=== PATIENT | male | born 1965 | race Caucasian/White ===

== ENCOUNTER 2022-11-22 21:32 | Emergency (ER) | payer MEDICAID, SELFPAY ==
[2022-11-22 21:35] VITALS: BP 160/105; PULSE 100; RESP 18; TEMP 37.2; O2SAT 98; BMI 58.7
[2022-11-22 21:40] VITALS: BP 129/81; PULSE 106; RESP 20; O2SAT 92
--- NOTE | 2022-11-22 21:51 | XRR_ITS ---
PROCEDURE INFORMATION: Exam: XR Chest Exam date and time: 11/22/2022 9:54 PM Age: 57 years old Clinical indication: Cough; Additional info: Esophage for body, PT states a piece of steak is stuck in his throat TECHNIQUE: Imaging protocol: Radiologic exam of the chest. Views: 2 views. COMPARISON: No relevant prior studies available. FINDINGS: Lungs: Unremarkable. No consolidation. Pleural spaces: Unremarkable. No pleural effusion. No pneumothorax. Heart/Mediastinum: Unremarkable. No cardiomegaly. Bones/joints: Unremarkable. XR/XR chest 2V* [id number] IMPRESSION: No acute findings.
--- NOTE | 2022-11-22 22:02 | W.ED.GENADLT ---
HPI - General Adult General: Chief complaint: Airway/Esophagus Foreign Body Stated complaint: Food stuck in Esoph Time Seen by Provider: 11/22/22 21:51 History of Present Illness: 57-year-old male patient comes in today for complaints of food bolus. Patient reports about 6:00 this evening he was eating a piece of steak and he went to swallow it but it felt like its become lodged in his esophagus. Patient has had a previous event and 2013 in which he has had to have endoscopy procedure done. Patient was also reported other times that it has resolved on its own. Patient reports having to spit up saliva as he is not able to swallow it completely down. Patient has a history of hypertension in which he takes medication for. Patient also is morbidly obese. Patient's airway is intact. No acute distress is noted. Patient denies any severe pain or discomfort. Associated symptoms: Deny chest pain, dyspnea or rash Review of Systems General: Reports: 10 or more systems reviewed and unremarkable except in HPI and below Card: Denies: chest pain Resp: Denies: dyspnea GI: Reports: dysphagia (Believes he has a food bolus) : Denies: difficulty urinating Skin/Breast: Denies: rash Physical Exam Const: COMMON NORMALS: patient oriented x3 Neck/C-Spine: COMMON NORMALS: full ROM Resp: COMMON NORMALS: normal respiratory effort and clear to auscultation bilaterally AUSCULTATION: clear to auscultation bilaterally Cardio: COMMON NORMALS: regular rate and regular rhythm RATE: regular rate RHYTHM: regular rhythm GI: COMMON NORMALS: Soft to palpation PALPATION: Yes Soft to palpation Back/Pelvis: COMMON NORMALS: thoracic and lumbar spine normal to inspection Extremity: COMMON NORMALS: normal to inspection Neuro: COMMON NORMALS: patient oriented x3 Skin: COMMON NORMALS: turgor normal GENERAL SKIN EXAM: turgor normal Course ED course: 2199, reviewed trial of glucagon since patient is does not appear to be in any distress or discomfort. Patient reported understanding and agreed to plan. Discussed patient with Dr. Cardenas who agreed to plan for glucagon administration, we will give it 45 minutes and then contact surgery if no resolution of symptoms. 2255, after 20 minutes of glucagon administration, a warm Coke was given to patient to chug. Patient did to volume jugs and was able to push down the food impaction. Patient then was able to drink water without difficulty and felt well to go home. Vital Signs: Vital signs: Vital Signs Temperature 98.9 F 11/22/22 21:35 Pulse Rate 106 H 11/22/22 22:40 Respiratory Rate 20 H 11/22/22 22:40 Blood Pressure 129/81 11/22/22 21:40 Pulse Oximetry 93 11/22/22 22:40 Oxygen Delivery Me thod Room Air 11/22/22 21:40 MDM - General Adult Medical Decision Making 57-year-old male patient comes in today for food impaction in the esophagus. On exam patient is in no distress. Patient is managing secretions well does occasionally spit some secretions out. Respirations are even lungs are clear to auscultation. Abdomen soft nontender. Differential diagnosis includes food impaction of the esophagus, partial obstruction of the esophagus, esophageal stricture, esophageal rupture. 2 view chest x-ray noted no abnormal fluid in the chest suggesting esophageal rupture. Patient was given 1 mg of glucagon followed by echo 20 minutes after and was able to pass the food bolus. Believe patient probably had a partially obstructed esophagus and was able to force it down with the gulping of fluid. Patient was able to belch and drink water after. Patient felt well to go home. Lab Data Radiology Impressions Chest X-Ray 11/22/22 21:51 IMPRESSION: No acute findings. Discharge Plan Discharge Patient Disposition: Home Clinical Impression: Esophageal obstruction due to food impaction Condition: Stable Discharge Orders: Discharge ED (Routine); Ordered 11/22/22 Ordered By: Garcia Mcnair Discharge Diet: Usual diet Discharge Activity: Increase activity as tolerated Patient Instructions: Food Impaction (ED) Activity Restrictions/Additional Instructions: Soft diet for the next 2 days. After that make sure to chew meat thoroughly, cut in smaller pieces to chew. Follow-up with primary care as needed. Coding Level of Care Code ED Sales Representative Trainee for Janet Colvin
[2022-11-22] MEDS: glucagon 1 mg/mL KIT 1 mL IV (22:17)
[2022-11-22 22:40] VITALS: PULSE 106; RESP 20; O2SAT 93
[2022-11-22 23:01] VITALS: BP 132/76; PULSE 101; RESP 18; O2SAT 94
--- NOTE | 2022-12-01 07:34 | DCPLANNER ---
TCM called patient due to no primary care physician - no answer at this time.
== END 2022-11-22 23:01 | disposition home or self-care (01) ==
PROVIDERS: Emergency Provider Nurse Practitioner Family
DX: K22.2 Esophageal obstruction (principal)
CPT/HCPCS: 71046; 96374; 99284; J1610

== ENCOUNTER 2023-01-05 07:25 | Emergency (ER) | payer MEDICAID, SELFPAY ==
[2023-01-05 07:30] VITALS: BP 167/87; PULSE 105; RESP 18; TEMP 36.6; O2SAT 94; BMI 57.9
[2023-01-05 07:38] VITALS: BP 167/87; PULSE 99; RESP 18; O2SAT 94
--- NOTE | 2023-01-05 08:02 | ED_ITS ---
HPI - Dental/Oral General: Chief complaint: Dental/Oral Stated complaint: tooth abscess Time Seen by Provider: 01/05/23 07:27 Source: patient Mode of arrival: ambulatory History of Present Illness: 57-year-old male presents emergency room complaining of left mandibular tooth pain. His premolars are inflamed at the gumline and previously eroded off he was seen earlier this week and started on amoxicillin he still has several days left but he feels like it is actually getting worse he is reporting a fever at home he is afebrile when he arrives here. He is complaining of pain radiating into his neck he has no difficulty with chewing he does have complaints of pain radiating to the ear as well. MD Complaint: tooth pain Teeth map: 1. Onset (ago): day(s) Duration: constant Severity: moderate Exacerbating factors: nothing Context: history of dental caries Associated symptoms: Reports ear or mastoid pain, fever(s), gum swelling and sore throat Treatment prior to arrival: other (Oral antibiotic) Review of Systems Const: Reports: fever(s) ENMT: Reports: throat pain, dental pain and ear or mastoid pain Card: Denies: chest pain, edema, dyspnea on exertion or orthopnea Resp: Denies: dyspnea, productive cough or non-productive cough GI: Denies: abdominal pain, nausea or vomiting : Denies: flank pain, dysuria, urinary frequency or urinary urgency Skin/Breast: Denies: rash or pruritus Physical Exam Const: COMMON NORMALS: no acute distress and healthy appearing GENERAL APPEARANCE: cooperative and comfortable ORIENTATION/CONSCIOUSNESS: Yes awake, Yes oriented to person, Yes oriented to place and Yes oriented to time HENMT: COMMON NORMALS: normocephalic, atraumatic and hearing grossly normal bilaterally HEAD & SCALP: normocephalic and atraumatic OTHER: Multiple eroded teeth with some inflammation at the premolar and first molar of the left mandible. No submandibular swelling Lymph: LYMPHATIC: no lymphadenopathy noted Resp: COMMON NORMALS: normal respiratory effort, No retractions, No use of accessory muscles and clear to auscultation bilaterally AUSCULTATION: clear to auscultation bilaterally Cardio: COMMON NORMALS: regular rate, regular rhythm and No murmurs present (Cardio) RATE: regular rate RHYTHM: regular rhythm GI: COMMON NORMALS: Soft to palpation and No hepatosplenomegaly present AUSCULTATION: Yes normoactive bowel sounds PALPATION: Yes Soft to palpation, No Tenderness to palpation present (GI), No Guarding due to palpation present (GI) and Yes No hepatosplenomegaly present Extremity: COMMON NORMALS: normal to inspection, capillary refill normal, no clubbing, cyanosis or edema, no calf tenderness and no pedal edema Neuro: SENSORIUM/ORIENTATION: Yes oriented to person, Yes oriented to place and Yes oriented to time Skin: COMMON NORMALS: no rashes or lesions noted GENERAL SKIN EXAM: no rashes or lesions noted Course Vital Signs: Vital signs: Vital Signs Temperature 97.9 F 01/05/23 07:30 Pulse Rate 99 01/05/23 07:38 Respiratory Rate 18 01/05/23 07:38 Blood Pressure 167/87 01/05/23 07:38 Pulse Oximetry 94 01/05/23 07:38 Oxygen Delivery Me thod Room Air 01/05/23 07:30 MDM - Dental/Oral Medical Decision Making Exam shows eroded teeth at the gumline with some moderate inflammation and swelling at that area. There is no submandibular fullness swelling or lymphadenopathy. Posterior pharyngeal wall normal. TMs are clear we will discharge patient home stop amoxicillin changed to Augmentin 875 twice daily for 10 days follow-up with dentist as soon as able Discharge Plan Discharge Patient Disposition: Home Clinical Impression: Dental abscess Condition: Stable Prescriptions: New amoxicillin-pot clavulanate 875-125 mg tablet 1 tab PO BID Qty: 20 0RF Discharge Orders: Discharge ED (Routine); Ordered 01/05/23 Ordered By: Ernie Pride Patient Instructions: Opioid Safety, Pain Management Activity Restrictions/Additional Instructions: You were seen today for tooth infection. Recommend you change from plain amoxicillin to Augmentin 1 tablet twice a day for 10 days. Follow-up with a dentist as soon as you are able. Coding Level of Care Code ED Automotive Collision Estimator for Janet Colvin
== END 2023-01-05 07:49 | disposition home or self-care (01) ==
PROVIDERS: Emergency Provider Family Medicine; PCP Physician Assistant
DX: K04.7 Periapical abscess without sinus (principal)
CPT/HCPCS: 99283

== ENCOUNTER 2023-01-06 08:03 | Observation (INO) | payer MEDICAID, SELFPAY ==
[2023-01-06] VITALS (12 sets, daily range): BP systolic 104–160; BP diastolic 60–90; PULSE 78–109; RESP 16–24; TEMP 36.5–37.6; O2SAT 90–95; BMI 58.7
--- NOTE | 2023-01-06 08:39 | W.ED.MALEGU ---
HPI - Male Genitourinary General: Chief complaint: Urogenital-Male Stated complaint: blood in urine Time Seen by Provider: 01/06/23 08:06 Source: patient Mode of arrival: ambulatory History of Present Illness: 57-year-old male who was seen yesterday for dental abscess change his medication from amoxicillin to Augmentin he is stating that the pharmacy would not fill it because they are stating that dose is the same. In addition to this he now has painless hematuria. He does not have a fever at this time he has no flank pain. No vomiting or diarrhea. Onset (ago): hour(s) Relieving factors: none Exacerbating factors: none Associated symptoms: Reports hematuria; Deny discharge, dysuria, fevers/chills, nausea, rash, swelling, urinary incontinence, urinary retention, mass or vomiting Review of Systems Const: Denies: fever(s), chills, body aches, change in appetite, fatigue or malaise Card: Denies: chest pain, edema, dyspnea on exertion or orthopnea Resp: Denies: dyspnea, productive cough or non-productive cough GI: Denies: nausea or vomiting : Reports: hematuria; Denies: flank pain, dysuria, urinary frequency, urinary urgency or urinary incontinence Skin/Breast: Denies: rash or pruritus PFSH ED PFSH: Medical History (Updated 01/07/23 @ 17:03 by Ernie Pride DO) Hyperlipidemia Hypertension Surgical History (Updated 01/06/23 @ 13:13 by Elsa Kirkpatrick MD) H/O lithotripsy Family History (Updated 01/06/23 @ 13:13 by Elsa Kirkpatrick MD) Denies family history of CAD (coronary artery disease) Physical Exam Const: COMMON NORMALS: no acute distress GENERAL APPEARANCE: cooperative and comfortable ORIENTATION/CONSCIOUSNESS: Yes awake, Yes oriented to person, Yes oriented to place and Yes oriented to time HENMT: COMMON NORMALS: normocephalic, atraumatic and hearing grossly normal bilaterally HEAD & SCALP: normocephalic and atraumatic Resp: COMMON NORMALS: normal respiratory effort, No retractions, No use of accessory muscles and clear to auscultation bilaterally AUSCULTATION: clear to auscultation bilaterally Cardio: COMMON NORMALS: regular rate, regular rhythm and No murmurs present (Cardio) RATE: regular rate RHYTHM: regular rhythm GI: COMMON NORMALS: Soft to palpation and No hepatosplenomegaly present AUSCULTATION: Yes normoactive bowel sounds PALPATION: Yes Soft to palpation, No Tenderness to palpation present (GI), No Guarding due to palpation present (GI) and Yes No hepatosplenomegaly present Extremity: COMMON NORMALS: normal to inspection, capillary refill normal, no clubbing, cyanosis or edema, no calf tenderness and no pedal edema Neuro: SENSORIUM/ORIENTATION: Yes oriented to person, Yes oriented to place and Yes oriented to time Skin: COMMON NORMALS: no rashes or lesions noted GENERAL SKIN EXAM: no rashes or lesions noted Course Vital Signs: Vital signs: Vital Signs Temperature 97.3 F L 01/07/23 12:00 Pulse Rate 100 01/07/23 12:00 Respiratory Rate 18 01/07/23 12:00 Blood Pressure 113/70 01/07/23 12:00 Pulse Oximetry 91 01/07/23 12:00 Oxygen Delivery Me thod Room Air 01/07/23 12:00 MDM - Male Medical Decision Making Labs and imaging reviewed. Clinically believe patient has a pyelonephritis he is failing outpatient treatment at this point we will go ahead and admit discussed with hospitalist to start him on IV antibiotics cultures done. Medical Records I reviewed the patient's medical records. Lab Data I reviewed the patient's lab results. 01/07/23 03:10 01/07/23 03:10 Radiology Impressions Abdomen/Pelvis CT 01/06/23 09:44 IMPRESSION: 1. 3 mm subpleural nodule laterally in the right lower lobe series 4, image 5. For patients at low risk (minimal or absent history of smoking and of other known risk factors), no routine follow-up is indicated. For patients at high risk (history of smoking or of other known risk factors), consider optional CT Chest at 12 months. (Reference: Berto) 2. Nonobstructive left sided kidney stone measures 4 mm versus calcification within the wall of a cyst. No ureteral nor bladder calculi detected. 3. Colonic diverticulosis is present without diverticulitis. 4. No acute intra-abdominal pathology. COMMENTS: Consistent with the [employer]'s Incidental Findings Committee white paper (J Am Guero Radiol 2018): Any incidental renal lesion less than 1 cm or classified as too small to characterize, or any incidental cystic renal lesion characterized as simple-appearing, is likely benign. No follow-up imaging is recommended for these lesions per consensus recommendations based on imaging criteria. REFERENCES: [facility] Starr et al. Guidelines for Management of Incidental Pulmonary Nodules Detected on CT Images: From the Fleischner Society 2017. Radiology. 2017;284(1):228-243. Laboratory Results WBC 20.9 10^3/uL (4.0-10.0) H 01/06/23 08:26 RBC 5.56 10^6/uL (4.1-5.3) H 01/06/23 08:26 Hgb 14.1 g/dL (11.7-16.6) 01/06/23 08:26 Hct 44.1 % (42.0-52.0) 01/06/23 08:26 MCV 79.3 fl (80-94) L 01/06/23 08:26 MCH 25.4 pg (28.0-34.0) L 01/06/23 08:26 MCHC 32.0 g/dL (30.0-36.0) 01/06/23 08:26 RDW 16.3 % (12.1-15.1) H 01/06/23 08:26 Plt Count 280 10^3/cmm (130-400) 01/06/23 08:26 MPV 9.7 fL (7.4-10.4) 01/06/23 08:26 Neut % (Auto) 89.4 % 01/06/23 08:26 Lymph % (Auto) 3.4 % 01/06/23 08:26 [place] % (Auto) 5.8 % 01/06/23 08:26 Eos % (Auto) 0.1 % 01/06/23 08:26 Baso % (Auto) 0.5 % 01/06/23 08:26 Neut # (Auto) 18.65 10^3/uL (1.8-7.7) H 01/06/23 08:26 Lymph # (Auto) 0.7 10^3/uL (0.8-4.8) L 01/06/23 08:26 [place] # (Auto) 1.2 10^3/uL (0.2-0.9) H 01/06/23 08:26 Eos # (Auto) 0.0 10^3/uL (0.0-0.8) 01/06/23 08:26 Baso # (Auto) 0.1 10^3/uL (0.0-0.1) 01/06/23 08:26 Nucleated RBC % (auto) 0 % 01/06/23 08:26 Nucleated RBCs # 0.0 /100WBC 01/06/23 08:26 Sodium 133 mmol/L (136-145) L 01/06/23 08:26 Potassium 3.8 mmol/L (3.5-5.1) 01/06/23 08:26 Chloride 96 mmol/L (98-107) L 01/06/23 08:26 Carbon Dioxide 25 mmol/L (22-29) 01/06/23 08:26 Anion Gap 15.8 (5-19) 01/06/23 08:26 BUN 12 mg/dL (6-20) 01/06/23 08:26 Creatinine 0.6 mg/dL (0.7-1.2) L 01/06/23 08:26 GFR Calculation 139.9 mL/min (90-130) H 01/06/23 08:26 Glucose 129 mg/dL (65-115) H 01/06/23 08:26 Calculated Osmolality 277 mOsm/kg (285-295) L 01/06/23 08:26 Calcium 9.1 mg/dL (8.5-10.5) 01/06/23 08:26 Vitamin B12 330 pg/mL (232-1245) 01/06/23 08:26 Urine Color Dark yellow (Yellow) 01/06/23 08:26 Urine Appearance Hazy (CLEAR) A 01/06/23 08:26 Urine pH 5 (5-7) 01/06/23 08:26 Ur Specific [place] 1.020 (1.005-1.030) 01/06/23 08:26 Urine Protein Trace (Negative) 01/06/23 08:26 Urine Glucose (UA) Norm (Normal) 01/06/23 08:26 Urine Ketones 2+ (Negative) H 01/06/23 08:26 Urine Blood 2+ (Negative) H 01/06/23 08:26 Urine Nitrate Negative (Negative) 01/06/23 08:26 Urine Bilirubin 1+ (Negative) H 01/06/23 08:26 Urine Urobilinogen 4+ mg/dL (Negative) H 01/06/23 08:26 Ur Leukocyte Esterase 2+ (Negative) H 01/06/23 08:26 Urine RBC 5-10 /hpf (0-2) H 01/06/23 08:26 Urine WBC 55-80 /hpf (0-5) H 01/06/23 08:26 Ur Squamous Epith Cells 5-10 /hpf (0-5) H 01/06/23 08:26 Amorphous Sediment Not Reportable 01/06/23 08:26 Urine Bacteria 1+ /hpf (NONE) H 01/06/23 08:26 Urine Mucus 2+ /hpf 01/06/23 08:26 Discharge Plan Discharge Patient Disposition: Admitted As Inpatient Admit Provider: Elsa Kirkpatrick Clinical Impression: Pyelonephritis, Dental abscess, Urinary tract infection Condition: Stable Coding Level of Care Code ED Security Systems Administrator for Janet Colvin
[2023-01-06 09:10] LABS: Basophils # 0.1 10^3/uL (0.0-0.1); Basophils % 0.5 %; Eosinophils % 0.1 %; Hematocrit 44.1 % (42.0-52.0); Hemoglobin 14.1 g/dL (11.7-16.6); Lymphocytes # 0.7 10^3/uL (0.8-4.8); Lymphocytes % 3.4 %; Mean Corpuscular Hemoglobin 25.4 pg (28.0-34.0); Mean Corpuscular Volume 79.3 fl (80-94); Mean Platelet Volume 9.7 fL (7.4-10.4); Monocytes # 1.2 10^3/uL (0.2-0.9); Monocytes % 5.8 %; Neutrophils # 18.65 10^3/uL (1.8-7.7); Neutrophils % 89.4 %; Nucleated Red Blood Cells % 0 %; Platelet Count 280 10^3/cmm (130-400); Red Blood Count 5.56 10^6/uL (4.1-5.3); Red Cell Distribution Width 16.3 % (12.1-15.1); White Blood Count 20.9 10^3/uL (4.0-10.0)
[2023-01-06 09:28] LABS: Anion Gap 15.8 (5-19); Blood Urea Nitrogen 12 mg/dL (6-20); Calcium 9.1 mg/dL (8.5-10.5); Carbon Dioxide 25 mmol/L (22-29); Chloride 96 mmol/L (98-107); Glomerular Filtration Rate 139.9 mL/min (90-130); Glucose 129 mg/dL (65-115); Osmolality Calculated 277 mOsm/kg (285-295); Potassium 3.8 mmol/L (3.5-5.1); Sodium 133 mmol/L (136-145)
[2023-01-06 09:41] LABS: Bilirubin Urine 1+ (Negative); Blood Urine 2+ (Negative); Glucose Urine UA Norm (Normal); Ketones Urine 2+ (Negative); Nitrate Urine Negative (Negative); Protein Urine Trace (Negative); Urine Appearance Hazy (CLEAR); Urine Color Dark Yellow (Yellow); pH Urine 5 (5-7)
[2023-01-06 09:42] LABS: Add Urine Microscopic? YES; Leukocyte Esterase Urine 2+ (Negative); Urobilinogen Urine 4+ mg/dL (Negative)
--- NOTE | 2023-01-06 09:44 | CTR_ITS ---
PROCEDURE INFORMATION: Exam: CT Abdomen And Pelvis Without Contrast Exam date and time: 01/06/2023 10:05 AM Age: 57 years old Clinical indication: Abdominal pain; Flank; Right; Patient HX: Hematuria, fever; Additional info: Flank pain TECHNIQUE: Imaging protocol: Computed tomography of the abdomen and pelvis without contrast. Total images: 507 Radiation optimization: All CT scans at this facility use at least one of these dose optimization techniques: automated exposure control; mA and/or kV adjustment per patient size (includes targeted exams where dose is matched to clinical indication); or iterative reconstruction. REPORTING DATA: Count of CT and Cardiac NM exams in prior 12 months: This patient has received 0 known CTs and 0 known cardiac nuclear medicine studies in the 12 months prior to the current study. COMPARISON: CR (CHEST, ) 11/22/2022 9:54 PM RADIATION DOSE METRICS: Total DLP (mGy-cm): 1408.33 FINDINGS: Lungs: 3 mm subpleural nodule laterally in the right lower lobe series 4, image 5. Trace bibasilar atelectasis or scar. Liver: Normal. No mass. Gallbladder and bile ducts: Normal. No calcified stones. No ductal dilation. Pancreas: Normal. No ductal dilation. Spleen: Normal. No splenomegaly. Adrenal glands: Normal. No mass. Kidneys and ureters: 11 cm largest cyst noted in a left kidney that has multiple simple renal cysts. No further evaluation required. Nonobstructive left sided kidney stone measures 4 mm versus calcification within the wall of a cyst. No ureteral nor bladder calculi detected. Stomach and bowel: Colonic diverticulosis is present without diverticulitis. Appendix: No evidence of appendicitis. Intraperitoneal space: Unremarkable. No free air. No significant fluid collection. Vasculature: Unremarkable. No abdominal aortic aneurysm. Lymph nodes: Unremarkable. No enlarged lymph nodes. Urinary bladder: See Kidneys and ureters finding. Reproductive: Unremarkable as visualized. Bones/joints: Unremarkable. No acute fracture. Soft tissues: Unremarkable. CT/CT kidney stone [id number] IMPRESSION: 1. 3 mm subpleural nodule laterally in the right lower lobe series 4, image 5. For patients at low risk (minimal or absent history of smoking and of other known risk factors), no routine follow-up is indicated. For patients at high risk (history of smoking or of other known risk factors), consider optional CT Chest at 12 months. (Reference: [facility]erto) 2. Nonobstructive left sided kidney stone measures 4 mm versus calcification within the wall of a cyst. No ureteral nor bladder calculi detected. 3. Colonic diverticulosis is present without diverticulitis. 4. No acute intra-abdominal pathology. COMMENTS: Consistent with the [employer]'s Incidental Findings Committee white paper (J Am Guero Radiol 2018): Any incidental renal lesion less than 1 cm or classified as too small to characterize, or any incidental cystic renal lesion characterized as simple-appearing, is likely benign. No follow-up imaging is recommended for these lesions per consensus recommendations based on imaging criteria. REFERENCES: [facility] Starr, et al. Guidelines for Management of Incidental Pulmonary Nodules Detected on CT Images: From the Fleischner Society 2017. Radiology. 2017;284(1):228-243.
[2023-01-06 09:48] LABS: WBC Urine 55-80 /hpf (0-5)
[2023-01-06 09:49] LABS: Add Urine Culture? Yes; Bacteria Urine 1+ /hpf; Mucus Urine 2+ /hpf
--- NOTE | 2023-01-06 12:37 | P.HP_ITS ---
Providers/Chief Complaint Primary Care Provider: Marco A Lawson Chief Complaint: blood in urine History of Present Illness Gerardo Johnson is a 57 year old male who carries history of hypertension presents today with chief complaint of hematuria. Patient has been using Augmentin for dental abscess, last night he started spiking fever 103, this morning he was experiencing chills that prompted his visit to the ER. He was noticing pink-colored urine as well. In the ER he was diagnosed with complicated UTI with 4 mm nonobstructing stone with severe leukocytosis without any signs of sepsis he is not febrile in the ER complaining of headache. He has received lisinopril and metoprolol in the morning Review of Systems Const: Reports: fever(s) and chills Eyes: Denies: change in vision ENMT: Denies: throat pain Card: Denies: chest pain Resp: Denies: dyspnea GI: Reports: nausea; Denies: abdominal pain : Reports: flank pain Musc: Denies: neck pain Skin/Breast: Denies: rash Neuro: Denies: headache(s) Psych: Reports: anxiety Medications/Allergies Home Medications Medication Instructions Recorded Confirmed Last Taken Type amoxicillin 875 mg-potassium 1 tab PO BID #20 tabs 01/05/23 01/06/23 01/06/23 Rx clavulanate 125 mg tablet aspirin 81 mg tablet,delayed 81 mg PO DAILY 01/06/23 01/06/23 01/06/23 History release atorvastatin 40 mg tablet 40 mg PO DAILY 01/06/23 01/06/23 01/06/23 History lisinopril 10 mg tablet 10 mg PO DAILY 01/06/23 01/06/23 01/06/23 History metoprolol tartrate 50 mg tablet 50 mg PO BID 01/06/23 01/06/23 01/06/23 History Allergies Allergy/AdvReac Type Severity Reaction Status Date / Time No Known Allergies Allergy Verified 01/06/23 10:56 PFSH Acute PFSH: Medical History (Updated 01/06/23 @ 13:13 by Elsa Kirkpatrick MD) Hypertension Surgical History (Updated 01/06/23 @ 13:13 by Elsa Kirkpatrick MD) H/O lithotripsy Family History (Updated 01/06/23 @ 13:13 by Elsa Kirkpatrick MD) Denies family history of CAD (coronary artery disease) Vitals/I&O/Wt Last Vital Signs Temp 97.9 F 01/06/23 08:12 Pulse 92 01/06/23 12:00 Resp 18 01/06/23 12:00 BP 160/90 01/06/23 08:32 Pulse Ox 95 01/06/23 12:00 O2 Del Method Room Air 01/06/23 08:32 Weight last 48 hrs Weight 170.097 kg Physical Exam Narrative: GCS 15 Awake and alert Morbidly obese No signs of edema Abdomen distended CVA tenderness positive No active chills or fever No active vomiting S1, S2 Currently on room air is at the bedside Data 01/06/23 08:26 01/06/23 08:26 A&P Assessment and plan (1) Pyelonephritis: Plan Complicated UTI/pyelonephritis Nonobstructive uropathy 4 mm stone no signs of sepsis, creatinine normal, significant leukocytosis, afebrile however patient is endorsing fever at home patient is not showing signs of acidosis Patient has history of lithotripsy for recurrent kidney stones In case of febrile events or worsening of leukocytosis he might need Dr. Arvind caal's consult I would put him on broad-spectrum antibiotics Request blood and urine culture Zofran for nausea Patient is complaining of headache give him Tylenol Hypertension: I will give him extra dose of lisinopril to make it 20 mg daily and continue metoprolol Patient is morbidly obese, no history of diabetes Full code Cardiac diet DVT prophylaxis heparin Attestations Medical Necessity Statement*: More than 2 midnights anticipated for complicated UTI Diagnoses Pyelonephritis N12
[2023-01-06] MEDS: acetaminophen 500 mg Tablet PO ×2 (13:24→21:01)
[2023-01-06 14:00] LABS: Lactate (Lactic Acid level) 1.1 mmol/L (0.5-2.2)
[2023-01-06] MEDS: sodium chloride 0.9% 1,000 ML 100 ML IV (14:01)
[2023-01-06] MEDS: piperacillin-tazobactam 3.375 GM in sodium chloride 0.9% (plus) 50 ML IV ×2 (14:02→22:01)
[2023-01-06 14:06] LABS: Procalcitonin 0.89 ng/mL (0-0.5)
[2023-01-06] MEDS: lisinopril 10 mg Tablet PO (14:07)
[2023-01-06 14:40] LABS: Vitamin B12 330 pg/mL (232-1245)
[2023-01-06] MEDS: metoprolol tartrate 50 mg Tablet PO (17:29)
[2023-01-06] MEDS: morphine IR 15 mg Tablet PO (17:29)
[2023-01-07] VITALS (10 sets, daily range): BP systolic 112–136; BP diastolic 63–78; PULSE 88–107; RESP 16–28; TEMP 36.3–37.3; O2SAT 91–94
[2023-01-07] MEDS: sodium chloride 0.9% 1,000 ML 100 ML IV ×2 (00:03→10:07)
[2023-01-07 03:59] LABS: Basophils # 0.1 10^3/uL (0.0-0.1); Basophils % 0.4 %; Eosinophils # 0.1 10^3/uL (0.0-0.8); Eosinophils % 0.7 %; Hematocrit 40.6 % (42.0-52.0); Hemoglobin 12.7 g/dL (11.7-16.6); Lymphocytes # 1.2 10^3/uL (0.8-4.8); Lymphocytes % 9.4 %; Mean Corpuscular HGB Conc 31.3 g/dL (30.0-36.0); Mean Corpuscular Volume 79.9 fl (80-94); Mean Platelet Volume 9.8 fL (7.4-10.4); Monocytes # 1.2 10^3/uL (0.2-0.9); Neutrophils # 9.63 10^3/uL (1.8-7.7); Neutrophils % 78.5 %; Nucleated Red Blood Cells % 0 %; Platelet Count 234 10^3/cmm (130-400); Red Blood Count 5.08 10^6/uL (4.1-5.3); Red Cell Distribution Width 16.2 % (12.1-15.1); White Blood Count 12.3 10^3/uL (4.0-10.0)
[2023-01-07 04:20] LABS: Anion Gap 14.1 (5-19); Blood Urea Nitrogen 12 mg/dL (6-20); C Reactive Protein 166.1 mg/L (0.0-4.9); Calcium 8.6 mg/dL (8.5-10.5); Carbon Dioxide 27 mmol/L (22-29); Chloride 98 mmol/L (98-107); Glomerular Filtration Rate 117.1 mL/min (90-130); Glucose 119 mg/dL (65-115); Magnesium 1.8 mg/dL (1.7-2.3); Osmolality Calculated 281 mOsm/kg (285-295); Phosphorus 3.9 mg/dL (2.5-4.5); Potassium 4.1 mmol/L (3.5-5.1); Sodium 135 mmol/L (136-145)
[2023-01-07] MEDS: morphine IR 15 mg Tablet PO (04:40)
[2023-01-07] MEDS: piperacillin-tazobactam 3.375 GM in sodium chloride 0.9% (plus) 50 ML IV ×3 (05:59→22:41)
[2023-01-07] MEDS: atorvastatin 40 mg Tablet PO (07:59)
[2023-01-07] MEDS: sennosides-docusate Tablet 1 TAB PO (07:59)
[2023-01-07] MEDS: lisinopril 10 mg Tablet PO (07:59)
[2023-01-07] MEDS: aspirin 81 mg EC Tablet PO (07:59)
[2023-01-07] MEDS: metoprolol tartrate 50 mg Tablet PO ×2 (08:03→16:29)
[2023-01-07] MEDS: acetaminophen 500 mg Tablet PO ×2 (10:07→16:29)
--- NOTE | 2023-01-07 10:51 | PC.PHAR ---
[id number] VANCOMYCIN: Pt BMI 58.7. Calculated dose rounded down to start at 2,000 mg q8h. This should yield trough ranging 12-20. trough before 4th dose 01/08 @1100. Will adjust depending on result.
[2023-01-07 11:07] LABS: Iron 15 ug/dL (59-158); Percent Saturation 6.9 % (20-50); Total Iron Binding Capacity 216 mcg/dl; Unsaturated Iron Binding 201 ug/dL (112-347)
[2023-01-07] MEDS: vancomycin 2,000 MG/400 ML PIGGYBACK 200 MG IV ×2 (11:39→20:11)
--- NOTE | 2023-01-07 15:41 | P.PN_ITS ---
Subjective Subjective: Hospital course, labs appreciated. Patient denies any nausea vomiting, headache. States feeling better. Still complaining of mild back pain. States he was on Augmentin which was started for him by his dentist for possible tooth infection for last 3 days. Denies any diarrhea. States hematuria has resolved. Tmax since admission afebrile. Hemodynamically stable. Blood work appreciated for resolving leukocytosis down to 12.3, stable hemoglobin, stable BMP Vitals/I&O/Wt Last Vital Signs Temp 97.3 F L 01/07/23 12:00 Pulse 100 01/07/23 12:00 Resp 18 01/07/23 12:00 BP 113/70 01/07/23 12:00 Pulse Ox 91 01/07/23 12:00 O2 Del Method Room Air 01/07/23 12:00 01/07/23 01/07/23 01/07/23 06:59 14:59 22:59 Intake Total 2190 / 2600 2290 / 2290 Output Total 400 / 400 325 / 325 Balance 1790 / 2200 1965 / 1965 Weight last 48 hrs Weight 170.097 kg Physical Exam Narrative: General: No acute distress, AO x3, morbidly obese HEENT: PERRLA, pupils bilaterally equal and reactive Chest: Normal vesicular breath sounds, no added sounds, equal good air entry bilaterally CVS: S1-S2 regular, no murmurs, no tachycardia, no gallops, no rubs Abdomen: Soft, nontender, no organomegaly, bowel sounds present Neuro: No focal deficits, no facial deformity, AO x3, power 5/5 in all limbs Data 01/07/23 03:10 01/07/23 03:10 Micro: Microbiology 01/06/23 14:05 Blood Culture - Preliminary Blood NEGATIVE TO DATE 01/06/23 13:24 Blood Culture - Preliminary Blood NEGATIVE TO DATE 01/06/23 08:26 Urine Culture - Preliminary Urine,Clean Catch A&P Assessment and plan (1) Pyelonephritis: (2) Dental abscess: Plan Complicated UTI/pyelonephritis: CT abdomen pelvis done on admission in the ER negative for obstructive uropathy. Sepsis ruled out on admission with no target organ dysfunction, afebrile the patient was having leukocytosis. Follow-up urine culture, blood culture. Check MRSA swab. For now continue with Zosyn. Add vancomycin. If patient continues to remain febrile, has worsening hemodynamics will plan to rule out dental abscess with CT face versus possible C. difficile given patient being on antibiotics prior to admission as well. Monitor BMP. Normal saline at 100 cc/h. Hypertension: Goal blood pressure less than 140/90 mmHg. Continue with home dose of lisinopril and metoprolol. Uptitrate as for blood pressure goal. Full code. Cardiac diet. Heparin 5000 every 12 hourly for DVT prophylaxis. Attestations Medical Necessity Statement*: Requires further hospitalization for management of complicated UTI /pyelonephritis Diagnoses Pyelonephritis N12 Dental abscess K04.7
[2023-01-07] MEDS: morphine 4 mg/mL SDV 1 mL 2 MG IVP (20:12)
[2023-01-08] VITALS (9 sets, daily range): BP systolic 99–129; BP diastolic 64–90; PULSE 88–145; RESP 16–22; TEMP 36.4–37.1; O2SAT 93–96
[2023-01-08] MEDS: sodium chloride 0.9% 1,000 ML 100 ML IV ×2 (00:21→12:17)
[2023-01-08] MEDS: vancomycin 2,000 MG/400 ML PIGGYBACK 200 MG IV ×3 (03:32→20:14)
[2023-01-08] MEDS: piperacillin-tazobactam 3.375 GM in sodium chloride 0.9% (plus) 50 ML IV ×3 (05:50→21:42)
[2023-01-08 06:58] LABS: Basophils # 0.1 10^3/uL (0.0-0.1); Basophils % 0.5 %; Eosinophils # 0.1 10^3/uL (0.0-0.8); Eosinophils % 0.8 %; Hematocrit 37.7 % (42.0-52.0); Lymphocytes # 1.3 10^3/uL (0.8-4.8); Mean Corpuscular HGB Conc 31.8 g/dL (30.0-36.0); Mean Corpuscular Hemoglobin 25.2 pg (28.0-34.0); Mean Corpuscular Volume 79.2 fl (80-94); Mean Platelet Volume 9.8 fL (7.4-10.4); Monocytes # 1.5 10^3/uL (0.2-0.9); Neutrophils # 10.12 10^3/uL (1.8-7.7); Neutrophils % 76.9 %; Nucleated Red Blood Cells % 0 %; Platelet Count 249 10^3/cmm (130-400); Red Blood Count 4.76 10^6/uL (4.1-5.3); White Blood Count 13.2 10^3/uL (4.0-10.0)
[2023-01-08 07:06] LABS: Estmated Average Glucose 126
[2023-01-08 07:12] LABS: Alanine Aminotransferase 54 U/L (0-41); Albumin Level 3.1 g/dL (3.5-5.2); Alkaline Phosphatase 115 U/L (40-130); Anion Gap 14.6 (5-19); Aspartate Amino Transferase 51 U/L (0-40); Blood Urea Nitrogen 12 mg/dL (6-20); Calcium 8.3 mg/dL (8.5-10.5); Carbon Dioxide 23 mmol/L (22-29); Chloride 97 mmol/L (98-107); Globulin 3.5 g/dL (1.3-4.6); Glomerular Filtration Rate 139.9 mL/min (90-130); Glucose 121 mg/dL (65-115); Osmolality Calculated 273 mOsm/kg (285-295); Potassium 3.6 mmol/L (3.5-5.1); Sodium 131 mmol/L (136-145); Total Bilirubin 0.3 mg/dL (0.15-1.2); Total Protein 6.6 g/dL (6.6-8.7)
[2023-01-08 07:14] LABS: Cholesterol 121 mg/dL (0-200); HDL Cholesterol 22 mg/dL (60-100); LDL Cholesterol Calculated 77 mg/dL (50-129); Triglycerides 112 mg/dL (0-150); VLDL Cholestrol Calculation 22 mg/dL (0-30)
[2023-01-08 07:31] LABS: Folate Level 10.2 ng/mL (4.5-32.2)
[2023-01-08] MEDS: atorvastatin 40 mg Tablet PO (07:38)
[2023-01-08] MEDS: acetaminophen 500 mg Tablet PO (07:38)
[2023-01-08] MEDS: metoprolol tartrate 50 mg Tablet PO ×2 (07:39→16:54)
[2023-01-08] MEDS: lisinopril 10 mg Tablet PO (07:40)
[2023-01-08] MEDS: aspirin 81 mg EC Tablet PO (07:40)
[2023-01-08] MEDS: sennosides-docusate Tablet 1 TAB PO (07:40)
[2023-01-08 11:46] LABS: Vancomycin Trough 12.9 ug/mL (10-15)
--- NOTE | 2023-01-08 16:36 | PM.PN ---
Subjective Subjective: Patient starting to feel better today. Pain is better controlled. Leukocytosis is trending down. Tmax 98.6. Medications: Reviewed: Yes Vitals/I&O/Wt Last Vital Signs Temp 98.6 F 01/08/23 15:32 Pulse 94 01/08/23 15:32 Resp 18 01/08/23 15:32 BP 126/85 01/08/23 15:32 Pulse Ox 96 01/08/23 15:32 O2 Del Method Room Air 01/08/23 15:32 01/08/23 01/08/23 01/08/23 06:59 14:59 22:59 Intake Total 690 / 4990 1760 / 1760 Output Total 600 / 925 Balance 90 / 4065 1760 / 1760 Physical Exam Narrative: General: No acute distress, AO x3 HEENT: PERRLA, pupils bilaterally equal and reactive, pallors not present Chest: Normal vesicular breath sounds, no added sounds, equal good air entry bilaterally CVS: S1-S2 regular, no murmurs, no tachycardia, no gallops, no rubs Abdomen: Soft, nontender, no organomegaly, bowel sounds present Neuro: No focal deficits, no facial deformity, AO x3, power 5/5 in all limbs Data 01/08/23 06:08 01/08/23 06:08 Micro: Microbiology 01/06/23 08:26 Urine Culture - Final Urine,Clean Catch 01/07/23 10:40 MRSA Culture - Final Nose 01/06/23 14:05 Blood Culture - Preliminary Blood NEGATIVE TO DATE 01/06/23 13:24 Blood Culture - Preliminary Blood NEGATIVE TO DATE A&P Assessment and plan (1) Pyelonephritis: (2) Dental abscess: Plan Complicated UTI/pyelonephritis: CT abdomen pelvis done on admission in the ER negative for obstructive uropathy. Sepsis ruled out on admission with no target organ dysfunction, afebrile the patient was having leukocytosis. Follow-up urine culture 20-40,000 skin xochitl. Negative urine culture does not conclusively exclude a UTI in this case as patient was receiving Augmentin prior to taking urine cultures. Thus far negative blood culture. Dental abscess appears to be improving. For now continue with Zosyn and vancomycin. If continues to do well over the next 24 hours plan discharge on oral antibiotics. Full code. Cardiac diet. Heparin 5000 every 12 hourly for DVT prophylaxis. Attestations Medical Necessity Statement*: Ongoing IV antibiotics, pending blood cultures. Coding Level of Care Code Acute Code for [facility] Diagnoses Pyelonephritis N12 Dental abscess K04.7
[2023-01-09 00:58] VITALS: RESP 18
[2023-01-09] MEDS: morphine 4 mg/mL SDV 1 mL 2 MG IVP (00:58)
[2023-01-09] MEDS: vancomycin 2,000 MG/400 ML PIGGYBACK 200 MG IV (03:56)
[2023-01-09 04:00] VITALS: BP 99/57; PULSE 95; RESP 18; TEMP 36.1; O2SAT 94
[2023-01-09] MEDS: sodium chloride 0.9% 1,000 ML 100 ML IV (04:00)
[2023-01-09] MEDS: piperacillin-tazobactam 3.375 GM in sodium chloride 0.9% (plus) 50 ML IV (05:35)
[2023-01-09] MEDS: metoprolol tartrate 50 mg Tablet PO (07:35)
[2023-01-09] MEDS: sennosides-docusate Tablet 1 TAB PO (07:35)
[2023-01-09] MEDS: lisinopril 10 mg Tablet PO (07:35)
[2023-01-09] MEDS: aspirin 81 mg EC Tablet PO (07:35)
[2023-01-09] MEDS: atorvastatin 40 mg Tablet PO (07:36)
[2023-01-09 08:00] VITALS: BP 132/87; PULSE 89; RESP 17; TEMP 36.6; O2SAT 93
[2023-01-09 09:10] VITALS: PULSE 81; RESP 17; O2SAT 96
--- NOTE | 2023-01-09 11:50 | PM.DCS ---
Discharge Providers Date of Admission: 01/06/23 11:49 Date of Discharge: January 09, 2023 Attending Provider at Admission: Elsa Kirkpatrick MD Attending Provider at Discharge: Azalea Marsh MD Primary Care Provider: Marco A Lawson Diagnoses at Discharge Discharge Diagnosis (1) Pyelonephritis: Status: Acute (2) Dental abscess: Status: Acute Reason for Visit Reason for Visit: blood in urine Hospital Course Hospital Course 57-year-old male with a past medical history of hypertension presented to the hospital with chief complaints of fever of 103 Fahrenheit, chills, and back pain. He also noted pink-colored urine and was concerned for hematuria which brought him to the emergency room. Patient was found to have a 4 mm nonobstructing stone in the kidney. No ureteral or bladder calculi were detected. Patient did note some pain at the tip of his penis and suspects he may have passed a stone. He has a past medical history of nephrolithiasis and has needed urological intervention twice in the past. His UA during this admission showed WBC of 55-80, 2+ blood, 2+ leukocyte Estrace and 1+ bacteria. Given his clinical presentation there was concern for UTI versus pyelonephritis as a cause of his symptoms. He received empiric treatment with piperacillin/tazobactam and vancomycin during this admission. Her urine culture taken this admission showed 10-20,000 mixed urogenital xochitl without any growth to date. Of note this urine culture was obtained while patient had been on Augmentin for the past 5 days for a dental abscess from his dentist. He is improving with regards to his dental abscess. States that onset of symptoms he had significant swelling involving his mandible, possibly some enlarged lymph nodes and some throat pain. All of this is much improved today. On examination today no overt pharyngeal swelling is noted. Taking left-sided molar is noted for which he has established follow-up with his dentist in the next few days. Given his positive UA, negative cultures on Augmentin, clinical symptoms of flank pain dysuria, overall impression was that of complicated UTI. He is currently being discharged on levofloxacin for his urinary symptoms empirically and also advised to continue Augmentin for the dental abscess. HIs abdominal pain and hematuria are currently resolved. Physical Exam Narrative: General: No acute distress, AO x3 HEENT: PERRLA, pupils bilaterally equal and reactive, pallors not present Chest: Normal vesicular breath sounds, no added sounds, equal good air entry bilaterally CVS: S1-S2 regular, no murmurs, no tachycardia, no gallops, no rubs Abdomen: Soft, nontender, no organomegaly, bowel sounds present Neuro: No focal deficits, no facial deformity, AO x3, power 5/5 in all limbs Discharge Data Studies Completed and Pending Completed Studies During Hospitalization Category Date Time Status CT kidney stone [id number] Stat Cat Scan 01/06/23 09:44 Completed Pending at discharge Category Date Time Status Blood Culture Stat Lab 01/06/23 14:05 Results Radiology Impressions Abdomen/Pelvis CT 01/06/23 09:44 IMPRESSION: 1. 3 mm subpleural nodule laterally in the right lower lobe series 4, image 5. For patients at low risk (minimal or absent history of smoking and of other known risk factors), no routine follow-up is indicated. For patients at high risk (history of smoking or of other known risk factors), consider optional CT Chest at 12 months. (Reference: Berto) 2. Nonobstructive left sided kidney stone measures 4 mm versus calcification within the wall of a cyst. No ureteral nor bladder calculi detected. 3. Colonic diverticulosis is present without diverticulitis. 4. No acute intra-abdominal pathology. COMMENTS: Consistent with the [place] [employer]'s Incidental Findings Committee white paper (J Am Guero Radiol 2018): Any incidental renal lesion less than 1 cm or classified as too small to characterize, or any incidental cystic renal lesion characterized as simple-appearing, is likely benign. No follow-up imaging is recommended for these lesions per consensus recommendations based on imaging criteria. REFERENCES: [place]erto Starr et al. Guidelines for Management of Incidental Pulmonary Nodules Detected on CT Images: From the Fleischner Society 2017. Radiology. 2017;284(1):228-243. Laboratory Results WBC 13.2 10^3/uL (4.0-10.0) H 01/08/23 06:08 RBC 4.76 10^6/uL (4.1-5.3) 01/08/23 06:08 Hgb 12.0 g/dL (11.7-16.6) 01/08/23 06:08 Hct 37.7 % (42.0-52.0) L 01/08/23 06:08 MCV 79.2 fl (80-94) L 01/08/23 06:08 MCH 25.2 pg (28.0-34.0) L 01/08/23 06:08 MCHC 31.8 g/dL (30.0-36.0) 01/08/23 06:08 RDW 16.0 % (12.1-15.1) H 01/08/23 06:08 Plt Count 249 10^3/cmm (130-400) 01/08/23 06:08 MPV 9.8 fL (7.4-10.4) 01/08/23 06:08 Neut % (Auto) 76.9 % 01/08/23 06:08 Lymph % (Auto) 10.0 % 01/08/23 06:08 [place] % (Auto) 11.0 % 01/08/23 06:08 Eos % (Auto) 0.8 % 01/08/23 06:08 Baso % (Auto) 0.5 % 01/08/23 06:08 Neut # (Auto) 10.12 10^3/uL (1.8-7.7) H 01/08/23 06:08 Lymph # (Auto) 1.3 10^3/uL (0.8-4.8) 01/08/23 06:08 [place] # (Auto) 1.5 10^3/uL (0.2-0.9) H 01/08/23 06:08 Eos # (Auto) 0.1 10^3/uL (0.0-0.8) 01/08/23 06:08 Baso # (Auto) 0.1 10^3/uL (0.0-0.1) 01/08/23 06:08 Nucleated RBC % (auto) 0 % 01/08/23 06:08 Nucleated RBCs # 0.0 /100WBC 01/08/23 06:08 Sodium 131 mmol/L (136-145) L 01/08/23 06:08 Potassium 3.6 mmol/L (3.5-5.1) 01/08/23 06:08 Chloride 97 mmol/L (98-107) L 01/08/23 06:08 Carbon Dioxide 23 mmol/L (22-29) 01/08/23 06:08 Anion Gap 14.6 (5-19) 01/08/23 06:08 BUN 12 mg/dL (6-20) 01/08/23 06:08 Creatinine 0.6 mg/dL (0.7-1.2) L 01/08/23 06:08 GFR Calculation 139.9 mL/min (90-130) H 01/08/23 06:08 Glucose 121 mg/dL (65-115) H 01/08/23 06:08 Estimat Average Glucose 126 01/08/23 06:08 Hemoglobin A1c 6.0 % (4.0-6.0) 01/08/23 06:08 Calculated Osmolality 273 mOsm/kg (285-295) L 01/08/23 06:08 Lactate 1.1 mmol/L (0.5-2.2) 01/06/23 13:24 Calcium 8.3 mg/dL (8.5-10.5) L 01/08/23 06:08 Phosphorus 3.9 mg/dL (2.5-4.5) 01/07/23 03:10 Magnesium 1.8 mg/dL (1.7-2.3) 01/07/23 03:10 Iron 15 ug/dL (59-158) L 01/07/23 03:10 TIBC 216 mcg/dl 01/07/23 03:10 % Saturation 6.9 % (20-50) L 01/07/23 03:10 Unsat Iron Binding 201 ug/dL (112-347) 01/07/23 03:10 Total Bilirubin 0.3 mg/dL (0.15-1.2) 01/08/23 06:08 AST 51 U/L (0-40) H 01/08/23 06:08 ALT 54 U/L (0-41) H 01/08/23 06:08 Alkaline Phosphatase 115 U/L (40-130) 01/08/23 06:08 C-Reactive Protein 166.1 mg/L (0.0-4.9) H 01/07/23 03:10 Total Protein 6.6 g/dL (6.6-8.7) 01/08/23 06:08 Albumin 3.1 g/dL (3.5-5.2) L 01/08/23 06:08 Globulin 3.5 g/dL (1.3-4.6) 01/08/23 06:08 Triglycerides 112 mg/dL (0-150) 01/08/23 06:08 Cholesterol 121 mg/dL (0-200) 01/08/23 06:08 LDL Cholesterol, Calc 77 mg/dL (50-129) 01/08/23 06:08 Total VLDL Cholesterol 22 mg/dL (0-30) 01/08/23 06:08 HDL Cholesterol 22 mg/dL (60-100) L 01/08/23 06:08 Cholesterol/HDL Ratio 5.50 mg/dL (1.0-5.00) H 01/08/23 06:08 Vitamin B12 330 pg/mL (232-1245) 01/06/23 08:26 Folate 10.2 ng/mL (4.5-32.2) 01/08/23 06:08 Procalcitonin 0.89 ng/mL (0-0.5) H 01/06/23 13:24 Urine Color Dark yellow (Yellow) 01/06/23 08:26 Urine Appearance Hazy (CLEAR) A 01/06/23 08:26 Urine pH 5 (5-7) 01/06/23 08:26 Ur Specific [place] 1.020 (1.005-1.030) 01/06/23 08:26 Urine Protein Trace (Negative) 01/06/23 08:26 Urine Glucose (UA) Norm (Normal) 01/06/23 08:26 Urine Ketones 2+ (Negative) H 01/06/23 08:26 Urine Blood 2+ (Negative) H 01/06/23 08:26 Urine Nitrate Negative (Negative) 01/06/23 08:26 Urine Bilirubin 1+ (Negative) H 01/06/23 08:26 Urine Urobilinogen 4+ mg/dL (Negative) H 01/06/23 08:26 Ur Leukocyte Esterase 2+ (Negative) H 01/06/23 08:26 Urine RBC 5-10 /hpf (0-2) H 01/06/23 08:26 Urine WBC 55-80 /hpf (0-5) H 01/06/23 08:26 Ur Squamous Epith Cells 5-10 /hpf (0-5) H 01/06/23 08:26 Amorphous Sediment Not Reportable 01/06/23 08:26 Urine Bacteria 1+ /hpf (NONE) H 01/06/23 08:26 Urine Mucus 2+ /hpf 01/06/23 08:26 Vancomycin Trough 12.9 ug/mL (10-15) 01/08/23 11:13 Vitals Last Vital Signs Temp 98 F 01/09/23 08:00 Pulse 81 01/09/23 09:10 Resp 17 01/09/23 09:10 BP 132/87 01/09/23 08:00 Pulse Ox 96 01/09/23 09:10 O2 Del Method Room Air 01/09/23 09:10 Discharge Plan Discharge Patient Disposition: Home Condition: Stable Prescriptions: New levofloxacin 750 mg tablet 750 mg PO DAILY 7 Days Qty: 7 0RF Continued amoxicillin-pot clavulanate 875-125 mg tablet 1 tab PO BID Qty: 20 0RF atorvastatin 40 mg tablet 40 mg PO DAILY Aspir-81 81 mg Tablet,Delayed Release (Dr/Ec) 81 mg PO DAILY lisinopril 10 mg tablet 10 mg PO DAILY metoprolol tartrate 50 mg tablet 50 mg PO BID Discharge Orders: Discharge Order (Routine); Ordered 01/09/23 Ordered By: Azalea Marsh Referrals: Marco A Lawson [Primary Care Provider] - Bao Mcdaniel MD [Other] - 3 weeks (nephrolithiasis, UTI ) Patient Instructions: Opioid Safety Discharge Attestations Time Spent in Discharge Care*: greater than 30 min Quality Metrics Clinical Quality Measures [ No reported AMI, CVA or VTE this stay] Coding Level of Care Code Acute Code for [facility] Diagnoses Pyelonephritis N12 Dental abscess K04.7
== END 2023-01-09 14:48 | disposition home or self-care (01) ==
LOC: ER 11:29 → MEDSURG 15:41
PROVIDERS: Student in an Organized Health Care Education/Training Program; Admitting Provider Internal Medicine; Emergency Provider Family Medicine; PCP Physician Assistant; Visit Provider Student in an Organized Health Care Education/Training Program
DX: N10 Acute pyelonephritis (principal); N20.0 Calculus of kidney; Z87.442 Personal history of urinary calculi; R51.9 Headache, unspecified; E66.01 Morbid (severe) obesity due to excess calories; Z68.43 Body mass index [BMI] 50.0-59.9, adult; I10 Essential (primary) hypertension; K04.7 Periapical abscess without sinus
CPT/HCPCS: 36415; 74176; 80048; 80053; 80061; 80202; 81001; 82607; 82746; 83036; 83540; 83550; 83605; 83735; 84100; 84145; 85025; 86140; 87040; 87086; 87641; 96365; 96367; 96375; 96376; 99285; G0378; J2270; J2543; J3372; J7030

== ENCOUNTER 2023-01-18 08:30 | Outpatient (CLI) | payer MEDICAID, SELFPAY | END 2023-01-18 08:31 | disposition home or self-care (01) | LOC: SLEEP 01-19 09:29 | PROVIDERS: PCP Physician Assistant; Visit Provider Physician Assistant | DX: E66.01 Morbid (severe) obesity due to excess calories (principal); G47.33 Obstructive sleep apnea (adult) (pediatric); G47.36 Sleep related hypoventilation in conditions classified elsewhere | CPT/HCPCS: G0399 ==

== ENCOUNTER 2023-09-28 11:50 | Emergency (ER) | payer MEDICAID, SELFPAY ==
--- NOTE | 2023-09-28 11:52 | XRR_ITS ---
PROCEDURE INFORMATION: Exam: XR Left Knee Exam date and time: 09/28/2023 12:51 PM Age: 57 years old Clinical indication: Injury or trauma; Fall; Blunt trauma; Knee; Left TECHNIQUE: Imaging protocol: Radiologic exam of the left knee. Views: 3 views. COMPARISON: No relevant prior studies available. FINDINGS: Bones/joints: Moderate arthritis left knee. Otherwise, unremarkable. Soft tissues: Normal. XR/XR knee LT 3V* [id number] IMPRESSION: 1. No acute findings. 2. Moderate arthritis.
[2023-09-28 12:16] VITALS: BP 189/75; PULSE 94; RESP 20; TEMP 36.7; O2SAT 95
--- NOTE | 2023-09-28 12:37 | ED_ITS ---
HPI - Extremity Injury (Lower) General: Chief Complaint: Extremity Injury, Lower Stated Complaint: fell(09/27/23), left knee pain Time Seen by Provider: 09/28/23 12:30 Source: patient Mode of arrival: ambulatory Limitations: no limitations History of Present Illness: Patient is a 57-year-old male who presents to ED today for evaluation of left knee injury. Patient states he has bilateral bad knees that he receives injections and by his mobile paint specialist in [place]. Patient states he was getting out of bed yesterday morning when his right knee buckled causing his left knee to twist and attempted to catch himself. There was no fall or direct trauma. Patient states since the incident he has had significant pain to the medial aspect of his left knee. He states this pain is similar to when he had a meniscal injury on his right knee. He has not noticed any significant swelling. He states ambulation is incredibly difficult even with the walker that he has at home. No other injuries or complaints at this time. MD complaint: knee injury Onset (ago): day(s) (yesterday) Place: home Severity: severe Relieving factors: immobilization Exacerbating factors: weight bearing, movement and palpation Associated symptoms: Reports inability to bear weight Other symptoms: none Review of Systems Musc: Reports: joint pain (L knee); Denies: extremity pain, extremity swelling, joint redness or joint warmth Neuro: Reports: difficulty walking (secondary to knee pain); Denies: numbness in extremities, weakness in extremities or sensory changes PFS ED PFSH: Medical History Psychiatric care Hyperlipidemia Hypertension Surgical History H/O lithotripsy Family History Denies family history of CAD (coronary artery disease) Physical Exam Const: COMMON NORMALS: no acute distress, patient oriented x3, no limitations and alert NUTRITIONAL APPEARANCE: obese morbidly obese (BMI over 60) Extremity: COMMON NORMALS: capillary refill normal, no calf tenderness and no pedal edema GENERAL: Yes normal exam except as noted LEFT LOWER EXTREMITY: Yes knee joint Left knee: Yes inspection (normal gross inspection), Yes palpation (TTP medial joint line), Yes ROM (limited secondary to pain) and Yes neurovascular exam (normal) Neuro: COMMON NORMALS: patient oriented x3, moves all extremities, no focal motor deficits and no sensory deficits noted SENSORIUM/ORIENTATION: Yes alert Course Vital Signs: Vital signs: Vital Signs Temperature 98.0 F 09/28/23 12:16 Pulse Rate 94 09/28/23 12:16 Respiratory Rate 20 H 09/28/23 12:16 Blood Pressure 189/75 09/28/23 12:16 Pulse Oximetry 95 09/28/23 12:16 Oxygen Delivery Me thod Room Air 09/28/23 12:16 MDM - Extremity Injury (Lower) Medical Decision Making XR negative. Requesting wheelchair as he has a walker but feels like he needs additional assistance. Contacted HOME who does not have a large enough/bariatric size in stock but will special order one and will deliver/have patient mushroom picker when it arrives. Patient agreeable to this. Recommending follow-up with his mobile paint specialist if pain does not improve in the next 1 to 2 weeks. He can also follow-up with primary care. Medical Records I reviewed the patient's medical records. Lab Data Radiology Impressions Knee X-Ray 09/28/23 11:52 IMPRESSION: 1. No acute findings. 2. Moderate arthritis. All radiology interpretation(s) finalized by discharge Discharge Plan Discharge Patient Disposition: Home Clinical Impression: Injury of knee, left Qualifiers: Encounter type: initial encounter Qualified Code(s): S89.92XA - Unspecified injury of left lower leg, initial encounter Condition: Stable Prescriptions: No Action tamsulosin 0.4 mg capsule 0.4 mg PO BEDTIME atorvastatin 40 mg tablet 40 mg PO BEDTIME aspirin 81 mg Tablet,Delayed Release (Dr/Ec) 81 mg PO QAM lisinopril 10 mg tablet 10 mg PO QAM metoprolol tartrate 50 mg tablet 50 mg PO BID Discharge Orders: Discharge ED (Routine); Ordered 09/28/23 Ordered By: Dory Rowan Other Ambulatory Orders: DME: Wheelchair (Order) Location: None Selected Ordered By: Dory Rowan Referrals: Marco A Lawson [Primary Care Provider] - Coding Level of Care Code ED Child Monitor for Janet Colvin
--- NOTE | 2023-09-28 12:51 | PC.PHAR ---
pt states he takes care of his own medications-pt states he finished his cipro 500mg q12 a while back ext shows last filled 09/11/23 14d/s-pt states he is still taking this lipitor 40mg hs ext shows last filled 12/28/22 30d/s
--- NOTE | 2023-09-28 13:33 | DCPLANNER ---
I faxed order for wheelchair to [facility] for wheelchair to be ordered.
== END 2023-09-28 13:50 | disposition home or self-care (01) ==
PROVIDERS: Emergency Provider Physician Assistant; PCP Physician Assistant
DX: S89.92XA Unspecified injury of left lower leg, initial encounter (principal); Z79.82 Long term (current) use of aspirin; E78.5 Hyperlipidemia, unspecified; I10 Essential (primary) hypertension; X50.1XXA Overexertion from prolonged static or awkward postures, initial encounter
CPT/HCPCS: 73562; 99283

== ENCOUNTER 2025-06-04 16:48 | Observation (INO) | payer OTHER, SELFPAY ==
[2025-06-04] VITALS (15 sets, daily range): BP systolic 114–183; BP diastolic 56–112; PULSE 61–133; RESP 17–22; TEMP 37.4–37.9; O2SAT 90–98; BMI 56.9; BMI 56.8
--- NOTE | 2025-06-04 17:13 | CTR_ITS ---
PROCEDURE INFORMATION: Exam: CT Abdomen And Pelvis With Contrast Exam date and time: 06/04/2025 6:17 PM Age: 59 years old Clinical indication: Abdominal pain; Additional info: Abd pain TECHNIQUE: Imaging protocol: Computed tomography of the abdomen and pelvis with contrast. Radiation optimization: All CT scans at this facility use at least one of these dose optimization techniques: automated exposure control; mA and/or kV adjustment per patient size (includes targeted exams where dose is matched to clinical indication); or iterative reconstruction. Contrast material: [id number]; Contrast volume: 100 ml; Contrast route: INTRAVENOUS (IV); COMPARISON: CT kidney stone [id number] 01/06/2023 10:05 AM RADIATION DOSE METRICS: Total DLP (mGy-cm): 1661.43 FINDINGS: Liver: Normal. No mass. Gallbladder and biliary ducts: Normal. No calcified stones. No ductal dilation. Pancreas: Normal. No ductal dilation. Spleen: Normal. No splenomegaly. Adrenal glands: Normal. No mass. Kidneys and ureters: Nonspecific although commonly benign renal cysts. Left renal cyst measures up to 12.3 cm, simple appearing though could be exerting mass effect and resulting in pain. Stomach and bowel: Sigmoid diverticulosis without definite significant acute inflammatory changes. Appendix: No evidence of appendicitis. Intraperitoneal space: Unremarkable. No free air. No significant fluid collection. Vasculature: Aortic atherosclerosis. Lymph nodes: Unremarkable. No enlarged lymph nodes. Urinary bladder: Unremarkable as visualized. Reproductive: Unremarkable as visualized. Bones/joints: Mild degenerative changes of the lumbar vertebral bodies. Soft tissues: Unremarkable. CT/CT abdomen pelvis w con* [id number] IMPRESSION: 1. Nonspecific although commonly benign renal cysts. Left renal cyst measures up to 12.3 cm, simple appearing though could be exerting mass effect and resulting in pain. 2. Sigmoid diverticulosis without definite significant acute inflammatory changes. 3. No definite radiopaque renal calculi. COMMENTS: Consistent with the [place] [employer]'s Incidental Findings Committee white paper (J Am Guero Radiol 2018): Any incidental renal lesion less than 1 cm or classified as too small to characterize, or any incidental cystic renal lesion characterized as simple-appearing, is likely benign. No follow-up imaging is recommended for these lesions per consensus recommendations based on imaging criteria.
--- NOTE | 2025-06-04 17:14 | W.ED.MALEGU ---
HPI - Male Genitourinary General: Chief complaint: Urogenital-Male Stated complaint: Can't pee Lower back Pain Time Seen by Provider: 06/04/25 17:08 Source: patient Mode of arrival: ambulatory Limitations: no limitations History of Present Illness: 59-year-old male states he has been having abdominal, flank pain going on since this morning. States the pain is sharp in nature he has been having some difficulty urinating as well. States he had a history of kidney stones in the past. Has had some nausea low-grade fevers. He denies any worse improving factors. Related Data Home Medications ?Medication ?Instructions ?Recorded ?Confirmed aspirin 81 mg tablet,delayed 81 mg PO QAM 01/06/23 09/28/23 release atorvastatin 40 mg tablet 40 mg PO BEDTIME 01/06/23 09/28/23 lisinopril 10 mg tablet 10 mg PO QAM 01/06/23 09/28/23 metoprolol tartrate 50 mg tablet 50 mg PO BID 01/06/23 09/28/23 tamsulosin 0.4 mg capsule 0.4 mg PO BEDTIME 09/28/23 09/28/23 Allergies Allergy/AdvReac Type Severity Reaction Status Date / Time No Known Allergies Allergy Verified 09/28/23 12:49 FOR[facility]LY [facility] ED PFSH: Medical History (Updated 06/04/25 @ 20:34 by Ivet Cardenas MD) Hyperlipidemia Hypertension Surgical History H/O lithotripsy Family History Denies family history of CAD (coronary artery disease) Physical Exam Const: COMMON NORMALS: patient oriented x3 HENMT: COMMON NORMALS: normocephalic and atraumatic HEAD & SCALP: normocephalic and atraumatic Neck/C-Spine: COMMON NORMALS: full ROM and supple Chest: COMMONS NORMALS: normal inspection of the chest Resp: COMMON NORMALS: normal respiratory effort, No retractions, No use of accessory muscles and clear to auscultation bilaterally AUSCULTATION: clear to auscultation bilaterally Cardio: COMMON NORMALS: regular rhythm and No murmurs present (Cardio) RATE: tachycardic RHYTHM: regular rhythm GI: COMMON NORMALS: Normal to inspection, nondistended, normoactive bowel sounds present, Soft to palpation, non-tender and no masses PALPATION: Yes Soft to palpation Extremity: COMMON NORMALS: normal to inspection and full ROM Neuro: COMMON NORMALS: patient oriented x3, moves all extremities and no focal motor deficits Psych: COMMON NORMALS: mental status grossly normal, Normal thought process present and cooperative THOUGHT PROCESS: Normal thought process present Skin: COMMON NORMALS: no rashes or lesions noted and no wounds GENERAL SKIN EXAM: no rashes or lesions noted Course Vital Signs: Vital signs: Vital Signs Temperature 99.5 F 06/04/25 16:48 Pulse Rate 84 06/04/25 20:15 Respiratory Rate 18 06/04/25 18:42 Blood Pressure 131/84 06/04/25 20:00 Pulse Oximetry 94 06/04/25 20:15 Oxygen Delivery Me thod Room Air 06/04/25 19:00 MDM - Male Medical Decision Making Patient presents here with burning urination abdominal pain along with fever. Differential includes pyelonephritis, kidney stone, acute cystitis. Did a CT of his abdomen and I did review showed no signs of kidney stone no pyelonephritis or hydronephrosis. Patient was febrile here with tachycardia met sepsis criteria does have an elevated white count at 32. Lactate here was normal did give him IV sepsis bolus for ideal body weight patient had blood cultures drawn lactate drawn started on IV antibiotics. His heart rate here is improved blood pressures have been stable with no hypotension I did review his EKG showed sinus tach heart rate [address] elevation QRS 92 QTc 453. I did speak to the hospitalist will admit at this time. Medical Records I reviewed the patient's medical records. Lab Data I reviewed the patient's lab results. 06/04/25 17:10 06/04/25 17:10 Radiology Impressions Abdomen/Pelvis CT 06/04/25 17:13 IMPRESSION: 1. Nonspecific although commonly benign renal cysts. Left renal cyst measures up to 12.3 cm, simple appearing though could be exerting mass effect and resulting in pain. 2. Sigmoid diverticulosis without definite significant acute inflammatory changes. 3. No definite radiopaque renal calculi. COMMENTS: Consistent with the [employer]'s Incidental Findings Committee white paper (J Am Guero Radiol 2018): Any incidental renal lesion less than 1 cm or classified as too small to characterize, or any incidental cystic renal lesion characterized as simple-appearing, is likely benign. No follow-up imaging is recommended for these lesions per consensus recommendations based on imaging criteria. Chest X-Ray 06/04/25 17:24 IMPRESSION: Infrahilar streakiness of the bilateral lungs, likely related to low lung volumes though can not totally exclude mild edema or infiltrates, clinical correlation. Laboratory Results WBC 32.34 10^3/uL (3.29-11.43) H* 06/04/25 17:10 RBC 5.74 10^6/uL (3.85-5.65) H 06/04/25 17:10 Hgb 14.40 g/dL (11.27-16.99) 06/04/25 17:10 Hct 43.6 % (37-53) 06/04/25 17:10 MCV 76.0 fl (82-101) L 06/04/25 17:10 MCH 25.1 pg (27-33) L 06/04/25 17:10 MCHC 33.0 g/dL (30-55) 06/04/25 17:10 RDW 16.4 % (12.1-15.1) H 06/04/25 17:10 Plt Count 342 10^3/cmm (157-399) 06/04/25 17:10 MPV 9.0 fL (7.4-10.4) 06/04/25 17:10 Neut % (Auto) 85.8 % 06/04/25 17:10 Lymph % (Auto) 6.2 % 06/04/25 17:10 [place] % (Auto) 6.7 % 06/04/25 17:10 Eos % (Auto) 0.2 % 06/04/25 17:10 Baso % (Auto) 0.4 % 06/04/25 17:10 Neut # (Auto) 27.77 10^3/uL (1.8-7.7) H 06/04/25 17:10 Lymph # (Auto) 2.0 10^3/uL (0.8-4.8) 06/04/25 17:10 [place] # (Auto) 2.2 10^3/uL (0.2-0.9) H 06/04/25 17:10 Eos # (Auto) 0.1 10^3/uL (0.0-0.8) 06/04/25 17:10 Baso # (Auto) 0.1 10^3/uL (0.0-0.1) 06/04/25 17:10 Nucleated RBC % (auto) 0 % 06/04/25 17:10 Nucleated RBCs # 0.0 /100WBC 06/04/25 17:10 Sodium 136 mmol/L (136-145) 06/04/25 17:10 Potassium 3.8 mmol/L (3.5-5.1) 06/04/25 17:10 Chloride 101 mmol/L (98-107) 06/04/25 17:10 Carbon Dioxide 20 mmol/L (22-29) L 06/04/25 17:10 Anion Gap 18.8 (5-19) 06/04/25 17:10 BUN 10 mg/dL (6-20) 06/04/25 17:10 Creatinine 0.6 mg/dL (0.7-1.2) L 06/04/25 17:10 GFR Calculation 138.9 mL/min (90-130) H 06/04/25 17:10 Glucose 149 mg/dL (65-115) H 06/04/25 17:10 Calculated Osmolality 284 mOsm/kg (285-295) L 06/04/25 17:10 Lactic Acid 1.8 mmol/L (0.5-2.2) 06/04/25 17:10 Calcium 9.1 mg/dL (8.5-10.5) 06/04/25 17:10 Total Bilirubin 0.7 mg/dL (0.15-1.2) 06/04/25 17:10 AST 8 U/L (0-40) 06/04/25 17:10 ALT 10 U/L (0-41) 06/04/25 17:10 Alkaline Phosphatase 79 U/L (40-130) 06/04/25 17:10 NT-Pro-B Natriuret Pep 75 pg/mL (0-125) 06/04/25 17:10 Total Protein 7.9 g/dL (6.6-8.7) 06/04/25 17:10 Albumin 4.2 g/dL (3.5-5.2) 06/04/25 17:10 Globulin 3.7 g/dL (1.3-4.6) 06/04/25 17:10 Lipase 18 U/L (13-60) 06/04/25 17:10 Urine Color Yellow (Yellow) 06/04/25 18:54 Urine Appearance Clear (CLEAR) 06/04/25 18:54 Urine pH 5.5 (5-7) 06/04/25 18:54 Ur Specific [place] >= 1.099 (1.005-1.030) H 06/04/25 18:54 Urine Protein 1+ (Negative) A 06/04/25 18:54 Urine Glucose (UA) Negative (Normal) 06/04/25 18:54 Urine Ketones Negative (Negative) 06/04/25 18:54 Urine Blood Trace (Negative) A 06/04/25 18:54 Urine Nitrate Positive (Negative) A 06/04/25 18:54 Urine Bilirubin Negative (Negative) 06/04/25 18:54 Urine Urobilinogen 0.2 mg/dL (Negative) 06/04/25 18:54 Ur Leukocyte Esterase Negative (Negative) 06/04/25 18:54 Urine RBC 15-25 /hpf (0-2) H 06/04/25 18:54 Urine WBC 0-4 /hpf (0-5) H 06/04/25 18:54 Ur Squamous Epith Cells 0-4 /hpf (0-5) H 06/04/25 18:54 Amorphous Sediment Not Reportable 06/04/25 18:54 Urine Bacteria None /hpf (NONE) 06/04/25 18:54 Hyaline Casts 0-4 /lpf H 06/04/25 18:54 All radiology interpretation(s) finalized by discharge EKG Data EKG 1: I personally reviewed and interpreted this EKG as follows: EKG Data: 06/04/25 EKG interpretation time: 17:01 Interpretation: sinus tach hr [address] elevation qrs 92 qtc 453 Discharge Plan Discharge Patient Disposition: Admitted As Inpatient Clinical Impression: Urinary tract infection, Sepsis Condition: Stable Coding Level of Care Code ED [employer] for Janet Colvin
[2025-06-04 17:19] LABS: Hematocrit 43.6 % (37-53); Hemoglobin 14.40 g/dL (11.27-16.99); Mean Corpuscular HGB Conc 33.0 g/dL (30-55); Mean Corpuscular Hemoglobin 25.1 pg (27-33); Mean Corpuscular Volume 76.0 fl (82-101); Nucleated Red Blood Cells % 0 %; Platelet Count 342 10^3/cmm (157-399); Red Blood Count 5.74 10^6/uL (3.85-5.65)
[2025-06-04] MEDS: morphine 4 mg/mL SDV 1 mL IVP (17:21)
[2025-06-04] MEDS: ondansetron 2 mg/ML SDV 2 mL 4 MG IVP (17:22)
[2025-06-04 17:24] LABS: White Blood Count 32.34 10^3/uL (3.29-11.43)
--- NOTE | 2025-06-04 17:24 | XRR_ITS ---
PROCEDURE INFORMATION: Exam: XR Chest Exam date and time: 06/04/2025 5:25 PM Age: 59 years old Clinical indication: Screening exam; Other screening; Additional info: Possible sepsis TECHNIQUE: Imaging protocol: Radiologic exam of the chest. Views: 1 view. COMPARISON: CR XR chest 2V* [id number] 11/22/2022 9:54 PM FINDINGS: Lungs: Infrahilar streakiness of the bilateral lungs, likely related to low lung volumes though can not totally exclude mild edema or infiltrates, clinical correlation. Pleural spaces: Unremarkable. No pleural effusion. No pneumothorax. Heart/Mediastinum: Unremarkable. No cardiomegaly. Bones/joints: Unremarkable. XR/XR chest 1V portable [id number] IMPRESSION: Infrahilar streakiness of the bilateral lungs, likely related to low lung volumes though can not totally exclude mild edema or infiltrates, clinical correlation.
--- NOTE | 2025-06-04 17:30 | ECG_ITS ---
[facility] Date: 2025-06-04 Pat Name: Gerardo Johnson Department: Room: Gender: Male Chute Man: : 1965 Requested By: Ivet Cardenas Order Number: [id number] Alona MD: Sofi Buchanan M.D. Measurements Intervals [place] Rate: 112 P: 24 CT: 195 QRS: 0 QRSD: 108 T: 29 QT: 420 QTc: 574 Interpretive Statements SINUS TACHYCARDIA LOW QRS VOLTAGE IN PRECORDIAL LEADS [QRS DEFLECTION < 1.0 mV IN CHEST LEADS] SEPTAL MYOCARDIAL INFARCTION , OF INDETERMINATE AGE [40+ ms Q WAVE IN V1/V2] No previous ECG available for comparison Electronically Signed On 06-06-2025 14:24:49 SHOT LIGHTER by Sofi Buchanan M.D. [email or web address]
[2025-06-04 17:38] LABS: Alanine Aminotransferase 10 U/L (0-41); Albumin Level 4.2 g/dL (3.5-5.2); Alkaline Phosphatase 79 U/L (40-130); Anion Gap 18.8 (5-19); Aspartate Amino Transferase 8 U/L (0-40); Blood Urea Nitrogen 10 mg/dL (6-20); Calcium 9.1 mg/dL (8.5-10.5); Carbon Dioxide 20 mmol/L (22-29); Chloride 101 mmol/L (98-107); Globulin 3.7 g/dL (1.3-4.6); Glucose 149 mg/dL (65-115); Lipase 18 U/L (13-60); Osmolality Calculated 284 mOsm/kg (285-295); Potassium 3.8 mmol/L (3.5-5.1); Sodium 136 mmol/L (136-145); Total Protein 7.9 g/dL (6.6-8.7)
[2025-06-04 17:47] LABS: Lactic Sepsis W/Reflex 1.8 mmol/L (0.5-2.2)
[2025-06-04] MEDS: piperacillin-tazobactam 3.375 GM in sodium chloride 0.9% (plus) 50 ML IV ×2 (17:53→22:16)
[2025-06-04] MEDS: iohexol 350 mg/mL 500 mL Btl (per mL) IV (18:22)
[2025-06-04 18:34] LABS: NT Pro B Type Natriuretic Pept 75 pg/mL (0-125)
[2025-06-04 19:12] LABS: Glucose Urine UA Negative (Normal); Nitrate Urine Positive (Negative)
[2025-06-04 20:16] LABS: Add Urine Microscopic? YES; Specific Gravity, Urine >= 1.099 (1.005-1.030); UA Manual Slide Review YES; UA Slide Review UA Slide Review Perf
--- NOTE | 2025-06-04 20:48 | PM.HP ---
Providers/Chief Complaint Primary Care Provider: Marco A Lawson Chief Complaint: Can't pee Lower back Pain History of Present Illness Gerardo Johnson is a 59 year old male Medications/Allergies Home Medications ?Medication ?Instructions ?Recorded ?Confirmed ?Last Taken ?Type aspirin 81 mg tablet,delayed 81 mg PO QAM 01/06/23 09/28/23 09/28/23 History release atorvastatin 40 mg tablet 40 mg PO BEDTIME 01/06/23 09/28/23 09/27/23 History lisinopril 10 mg tablet 10 mg PO QAM 01/06/23 09/28/23 09/28/23 History metoprolol tartrate 50 mg tablet 50 mg PO BID 01/06/23 09/28/23 09/28/23 History tamsulosin 0.4 mg capsule 0.4 mg PO BEDTIME 09/28/23 09/28/23 09/27/23 History Allergies Allergy/AdvReac Type Severity Reaction Status Date / Time No Known Allergies Allergy Verified 09/28/23 12:49 PFSH Acute PFSH: Medical History (Updated 06/04/25 @ 20:34 by Ivet Cardenas MD) Hyperlipidemia Hypertension Surgical History H/O lithotripsy Family History Denies family history of CAD (coronary artery disease) Vitals/I&O/Wt Last Vital Signs Temp 99.5 F 06/04/25 16:48 Pulse 108 H 06/04/25 20:30 Resp 18 06/04/25 20:30 BP 183/112 06/04/25 20:30 Pulse Ox 94 06/04/25 20:30 O2 Del Method Room Air 06/04/25 20:30 06/04/25 06/04/25 06/04/25 06:59 14:59 22:59 Intake Total 2800 / 2800 Balance 2800 / 2800 Weight last 48 hrs Weight 170.097 kg Data 06/04/25 17:10 06/04/25 17:10 Micro: Microbiology 06/04/25 17:48 Blood Culture - Preliminary Blood SPECIMEN COLLECTED 06/04/25 17:45 Blood Culture - Preliminary Blood SPECIMEN COLLECTED A&P Assessment and plan 1. Urinary tract infection: START OF MEDICAL REPORT Deric Ford D.O. Board Certified Internal Medicine Chief Complaint: Urinary retention History of Present Illness: The patient is a 59-year-old male with known history of BPH who presents with chief complaint of urinary retention. He states he had one episode. He states on the evening of hospitalization he attempted to urinate and suddenly his stream was obstructed and afterwards he had some urinary dribbling. He has known history of nephrolithiasis as well. In the 48 hours leading up to his hospitalization he admits to fever, rigors, nausea, vomiting, diarrhea, dysuria, urinary frequency, incomplete voiding. He denies abdominal pain, flank pain, hematuria. He admits to mild lower back pain. He presents for further evaluation I have explained to the patient (if they are coherent, able to comprehend, and/or are communicative) and/or their family member(s), friend(s), guardian(s), and/or other individual(s) present on the patient?s behalf (if present) the patient?s current medical condition, the patient?s current plan of care, and I have answered all questions posed to me. Family History: Coronary artery disease Physical Examination: General: -Alert. -No acute distress. -No dyspnea. -No tachypnea. ? Morbidly obese Head: -Atraumatic. -Normocephalic. Eyes: -Pupils equally round and reactive to light and accommodation. -Extraocular muscles intact. Neurological: -Cranial nerves II-XII intact. Neck: -No jugular venous distention. -No thyromegaly. -No cervical lymphadenopathy. Heart: -Regular rate. -Regular rhythm. -No murmurs. -No gallops. -No rubs. Lungs: -No wheeze. -No rhonchi. -No rales. Abdomen: -Normal bowel sounds in all four quadrants. -No rebound. -No guarding. -No tenderness. Extremities: -2/4 pulse in all four extremities. -No clubbing. -No cyanosis. -No edema. -No calf tenderness present bilaterally. -Negative Maris?s sign bilaterally. Musculoskeletal: -5/5 bilateral upper extremity strength. -5/5 bilateral lower extremity strength. -Sensorium of bilateral upper extremities are equal and intact. -Sensorium of bilateral lower extremities are equal and intact. Additional Details / Additional Findings / Exceptions / Miscellaneous: Pertinent Laboratory Results / Pertinent Radiology Results / Pertinent Diagnostic Results / Pertinent Vital Signs: Blood pressure 131/84, heart rate 84, respiration 18, temperature 99.5?, 94% room air. Blood blood cell count 32,000, MCV 76 Social History: Caffeine: Coffee Tobacco: Never Alcohol: Present: Rare. Past: History of alcohol abuse Pets: Yes + Allergies: No known drug allergies Code Status: Full Admission Date: 8:47 PM on June 04, 2025 Discharge Date: History of Present Illness / Hospital Course Summary: The patient is a 59-year-old male with known history of BPH who presents with chief complaint of urinary retention. He states he had one episode. He states on the evening of hospitalization he attempted to urinate and suddenly his stream was obstructed and afterwards he had some urinary dribbling. He has known history of nephrolithiasis as well. In the 48 hours leading up to his hospitalization he admits to fever, rigors, nausea, vomiting, diarrhea, dysuria, urinary frequency, incomplete voiding. He denies abdominal pain, flank pain, hematuria. He admits to mild lower back pain. He presents for further evaluation Surgical History: Lithotripsy, left hand surgery Assessment / Plan + Medical History: Urinary tract infection. Blood culture ?2. Urine culture. Check PSA. Bladder scan every 6 hours. Zosyn 3.375 g IV every 6 hours plus IV normal saline 150 ML?s per hour Diverticulosis Microcytosis Anxiety History of nephrolithiasis BPH Hyperlipidemia Hypertension Obesity. The patient will be counseled regarding lifestyle modification DVT prophylaxis. Lovenox 40 mg SC daily Consultations: None Disposition: Anticipate discharge in 48-72 hours + Discharge Diet: 2 g sodium, cardiac Discharge Activity: Discharge Condition: Discharge Medications: Time Spent with Patient: Greater than 30 minutes. Deric Ford D.O. Board Certified Internal Medicine END OF MEDICAL REPORT PDMP PDMP Reviewed: Not Reviewed Attestations Medical Necessity Statement*: Disposition: Anticipate discharge in 48-72 hours Coding Level of Care Code Acute Code for Chg Fwd Diagnoses Urinary tract infection N39.0
[2025-06-04] MEDS: HYDROcodone-acetaminophen 5-325 mg Tablet 1 TAB PO (22:16)
[2025-06-05] VITALS (7 sets, daily range): BP systolic 102–122; BP diastolic 64–70; PULSE 69–131; RESP 17–18; TEMP 36.9–37.4; O2SAT 92–95
[2025-06-05] MEDS: HYDROcodone-acetaminophen 5-325 mg Tablet 1 TAB PO ×4 (02:04→19:58)
[2025-06-05] MEDS: piperacillin-tazobactam 3.375 GM in sodium chloride 0.9% (plus) 50 ML IV ×4 (03:37→21:55)
[2025-06-05 06:00] LABS: Hematocrit 37.3 % (37-53); Hemoglobin 12.10 g/dL (11.27-16.99); Mean Corpuscular HGB Conc 32.4 g/dL (30-55); Mean Corpuscular Hemoglobin 25.9 pg (27-33); Mean Corpuscular Volume 79.9 fl (82-101); Nucleated Red Blood Cells % 0 %; Platelet Count 301 10^3/cmm (157-399); Red Blood Count 4.67 10^6/uL (3.85-5.65); White Blood Count 29.14 10^3/uL (3.29-11.43)
--- NOTE | 2025-06-05 09:15 | PM.PN ---
Subjective Subjective: Patient is seen today in the company of the . He was admitted last night because of apparent reported painful urination with subjective inability to empty bladder. Upon getting, his WBC was >30,000/ml, thereby leading to diagnosis of UTI, with possible sepsis. Is currently on Zosyn, pending urine culture. Currently, he reports resolution of symptoms, there is diffuse urethral pain. He reports having had a similar symptomatology about 10 to 20 years ago, during which he was found to have a ureteral stone causing obstruction. This was treated with some lithotripsy. He denies any fever, headache, dizziness, or any systemic symptoms. Vitals/I&O/Wt Last Vital Signs Temp 99.4 F 06/05/25 04:00 Pulse 101 H 06/05/25 04:00 Resp 17 06/05/25 04:00 BP 115/64 06/05/25 04:00 Pulse Ox 92 06/05/25 04:00 O2 Del Method Room Air 06/05/25 04:00 06/04/25 06/05/25 06/05/25 22:59 06:59 14:59 Intake Total 2800 / 2800 1205 / 4005 Output Total 800 / 800 Balance 2800 / 2800 405 / 3205 Weight last 48 hrs Weight 169.19 kg Weight 169.507 kg Weight 170.097 kg Physical Exam Narrative: General: Morbidly obese patient. Awake and alert. Cooperative. Chest/Resp: Normal respiratory chest movts; no obvious respiratory distress. CVS: Regular heart rate and rhythm. GI: Obese abdomen. No obvious CVA tenderness. Kidneys not ballotable. Extremities: No obvious pitting pedal edema. Skin: No obvious new rashes or new skin lesions. Data 06/05/25 05:06 06/04/25 17:10 Micro: Microbiology 06/04/25 17:48 Blood Culture - Preliminary Blood SPECIMEN COLLECTED 06/04/25 17:45 Blood Culture - Preliminary Blood SPECIMEN COLLECTED CT Abd/Pel: Radiologist's impression: 1. Nonspecific although commonly benign renal cysts. Left renal cyst measures up to 12.3 cm, simple appearing though could be exerting mass effect and resulting in pain. 2. Sigmoid diverticulosis without definite significant acute inflammatory changes. 3. No definite radiopaque renal calculi. A&P Assessment and plan 1. Pyelonephritis: 2. Urinary tract infection: 3. Renal cyst, left: 4. Essential hypertension: 5. Hyperlipidemia: Plan: I am not very impressed the patient's urinalysis, as he does not classically explain patient's symptoms. The imaging reports no obvious renal stone; but patient's urine has a few RBCs. Otherwise, I am not sure whether the huge left kidney 12 cm cyst is playing any part to this. I am particularly worried about a very high white count, which appears out of proportion to other findings. Otherwise, clinically, he is doing very well, and looks like he is good to be discharged. Given the above, I will continue him on IV Zosyn that is going on right now, and await for urine culture result, tomorrow morning. This will give us room for more elicitation and clarity, before proceeding with discharge. Continue to treat other medical problems empirically. Resume patient's home medications, as adjusted. Continue to monitor closely. PDMP PDMP Reviewed: Not Reviewed Attestations Medical Necessity Statement*: Patient admitted for apparent severe clinical condition, as outlined in the Assessment & Plan section above. Patient will need up to 2 midnight stay, estimated, at least, to adequately and appropriately treat and optimally control above-named clinical conditions,. Coding Level of Care Code Acute Code for [facility] Diagnoses Pyelonephritis N12 Urinary tract infection N39.0 Renal cyst, left N28.1 Essential hypertension I10 Hyperlipidemia E78.5
[2025-06-06] MEDS: piperacillin-tazobactam 3.375 GM in sodium chloride 0.9% (plus) 50 ML IV ×2 (03:28→09:59)
[2025-06-06 04:00] VITALS: BP 101/65; PULSE 73; RESP 16; TEMP 36.9; O2SAT 95
[2025-06-06 06:00] VITALS: PULSE 78
[2025-06-06 07:49] VITALS: BP 119/73; PULSE 120; RESP 16; TEMP 36.8; O2SAT 95
--- NOTE | 2025-06-06 11:46 | P.DS_ITS ---
Discharge Providers Date of Admission: 06/04/25 20:43 Date of Discharge: June 06, 2025 Attending Provider at Admission: Deric Ford DO Attending Provider at Discharge: Pablo Rueda MD Primary Care Provider: Marco A Lawson Diagnoses at Discharge Discharge Diagnosis 1. Urinary tract infection: 2. Pyelonephritis: 3. Renal cyst, left: 4. Essential hypertension: 5. Hyperlipidemia: Reason for Visit Reason for Visit: Can't pee Lower back Pain Brief History: Patient present with complaint of poor ability to empty bladder. Workup shows some abnormal urinalysis, but CT scan incidentally reviewed a huge left kidney cyst. Otherwise, IV Zosyn and IV fluid was started, despite negative findings on CT of pyelonephritis. No other symptoms with that empirically. Hospital Course Hospital Course Patient made remarkable improvement, with remarkable resolution of symptoms as as early as yesterday. Urine culture, as today, preliminarily grew some sub- diagnostic level of CFU's 10,000-20,000 cols/ML of mixed urogenital xochitl. However, given apparent good response to Zosyn, and no persisting clinical symptoms, patient is therefore discharged today on Augmentin for UTI. He is advised to follow-up with urology for further evaluation of the massive left kidney cyst. See my discharge instructions and discharge orders for more details. Physical Exam Narrative: General: Pleasant patient. Morbidly obese. Awake and alert patient. Resp: No obvious respiratory distress or difficulty breathing. Skin: No obvious rashes or new skin lesions. All other physical findings essentially within normal limits. Discharge Data Studies Completed and Pending Completed Studies During Hospitalization Category Date Time Status CT abdomen pelvis w con* [id number] Stat Cat Scan 06/04/25 17:13 Completed XR chest 1V portable [id number] Stat Exams 06/04/25 17:24 Completed Pending at discharge Category Date Time Status Blood Culture Stat Lab 06/04/25 17:48 Results Urine Culture Routine Lab 06/04/25 18:54 Results Radiology Impressions Abdomen/Pelvis CT 06/04/25 17:13 IMPRESSION: 1. Nonspecific although commonly benign renal cysts. Left renal cyst measures up to 12.3 cm, simple appearing though could be exerting mass effect and resulting in pain. 2. Sigmoid diverticulosis without definite significant acute inflammatory changes. 3. No definite radiopaque renal calculi. Chest X-Ray 06/04/25 17:24 IMPRESSION: Infrahilar streakiness of the bilateral lungs, likely related to low lung volumes though can not totally exclude mild edema or infiltrates. Vitals Last Vital Signs Temp 98.2 F 06/06/25 07:49 Pulse 120 H 06/06/25 07:49 Resp 16 06/06/25 07:49 BP 119/73 06/06/25 07:49 Pulse Ox 95 06/06/25 07:49 O2 Del Method Room Air 06/06/25 07:49 Discharge Plan Discharge Patient Disposition: Home Condition: Stable Prescriptions: New amoxicillin-pot clavulanate [Augmentin] 500-125 mg tablet 1 tab PO Q8H 7 Days Qty: 21 0RF Continued aspirin 81 mg Tablet,Delayed Release (Dr/Ec) 81 mg PO QAM lisinopril 10 mg tablet 10 mg PO QAM metoprolol tartrate 50 mg tablet 50 mg PO BID Discharge Order = DC NOW: Discharge Order (Routine); Ordered 06/06/25 Ordered By: Pablo Rueda Referrals: [facility] [Outside, Urology] - 2 weeks Referral Note: Obstructing stone in ureter. Patient stated that he has been seen by Dr Mcdaniel in the past and would like to see him again if possible. We have notified your physician's clinic of the need for a follow-up appo intment to be scheduled. If you have not heard from them within the next 2 business days, please call them directly. Marco A Lawson [Primary Care Provider, [facility]] Referral Note: We have notified your physician's clinic of the need for a follow-up appointment to be scheduled. If you have not heard from them within the next 2 business days, please call them directly. Discharge Diet: Advance as tolerated and Usual diet Discharge Activity: Resume usual activity Patient Instructions: Amoxicillin/Clavulanate Potassium (By mouth), Urinary Tract Infection in Men (GEN), Opioid Safety, Patient Portal & Derrek Instructions Activity Restrictions/Additional Instructions: Follow-up with the urologist within the next 1 to 2 weeks. Follow-up with your primary care provider as needed Discharge Attestations Time Spent in Discharge Care*: less than 30 min Quality Metrics Clinical Quality Measures [ No reported AMI, CVA or VTE this stay] Coding Level of Care Code Acute Code for Chg Fwd Diagnoses Urinary tract infection N39.0 Pyelonephritis N12 Renal cyst, left N28.1 Essential hypertension I10 Hyperlipidemia E78.5
[2025-06-06 13:40] VITALS: BP 119/73; PULSE 78; RESP 16; TEMP 36.8; O2SAT 95
== END 2025-06-06 13:42 | disposition home or self-care (01) ==
LOC: ER 20:34 → MEDSURG 22:53
PROVIDERS: Admitting Provider Internal Medicine; Emergency Provider Emergency Medicine; PCP Physician Assistant; Visit Provider Family Medicine
DX: N39.0 Urinary tract infection, site not specified (principal); N12 Tubulo-interstitial nephritis, not specified as acute or chronic; N28.1 Cyst of kidney, acquired; I10 Essential (primary) hypertension; E78.5 Hyperlipidemia, unspecified; Z79.82 Long term (current) use of aspirin; E66.01 Morbid (severe) obesity due to excess calories; Z68.43 Body mass index [BMI] 50.0-59.9, adult; F41.9 Anxiety disorder, unspecified
CPT/HCPCS: 36415; 51798; 71045; 74177; 80053; 81001; 83605; 83690; 83880; 85025; 87040; 87086; 93005; 96365; 96367; 96372; 96375; 99285; G0103; G0378; J1650; J1885; J2270; J2405; J2543; J3373; J7030; J7040; J7050; J9999